=== PATIENT | male | born 1950 | race African-American/Black ===

== ENCOUNTER → 2017-03-05 | Outpatient (CLI) | payer BC ==
--- NOTE | 2017-03-07 17:13 | CR ---
EXAM DATE: 03/05/17 PATIENT'S AGE: 66 Patient: ROSMERY ALICEA Facility: [place], [place] Site . Site : 1950 Study: XRay Knee Bilateral [id number]/28/2017 4:55:50 PM Ordering Physician: Tamie Duron Final Report: Indication: Knee pain Technique: Four views bilateral knees Comparison: None Findings: Bones: Alignment is normal. No fractures or bone lesions. Joint spaces: Mild bilateral tricompartmental degenerative changes. Soft tissues: Unremarkable. Impression: No acute abnormality. Mild bilateral tricompartmental degenerative changes. Dictated by Yola Hairston MD @ Mar 05 2017 5:21PM (Electronic Signature) Report Signed by Proxy. ALEXANDER
== END ==
LOC: MW.CHFP 16:21
PROVIDERS: ATTEND Physician Assistant
DX: M25.561 Pain in right knee (principal)
CPT/HCPCS: 735642650; 73564-50